=== PATIENT | female | born 1965 | race Caucasian/White ===

== ENCOUNTER → 2016-09-14 | Outpatient (CLI) | payer BC | LOC: KOH-I 09:40 | DX: M25.562 Pain in left knee (principal) | CPT/HCPCS: 73562 ==

== ENCOUNTER → 2020-05-06 | Outpatient (CLI) | payer BC ==
[~2020-05-06] MED LIST: TORADOL 10 MG T10 MG PO
== END ==
LOC: KOH-I 12:39
DX: M25.562 Pain in left knee (principal); M17.12 Unilateral primary osteoarthritis, left knee
CPT/HCPCS: 73562

== ENCOUNTER → 2020-10-21 | Outpatient (CLI) | payer BC | LOC: KOH-I 08:00 | DX: S83.242A Other tear of medial meniscus, current injury, left knee, initial encounter (principal); M25.562 Pain in left knee; M22.42 Chondromalacia patellae, left knee | CPT/HCPCS: 73721 ==

== ENCOUNTER → 2020-11-16 | Outpatient (CLI) | payer BC | LOC: KOH-I 16:08 | DX: R07.9 Chest pain, unspecified (principal) | CPT/HCPCS: 71046 ==

== ENCOUNTER → 2021-02-12 | Outpatient (CLI) | payer BC ==
[~2021-02-12] MED LIST changes: +CYANOCOBAL1000 MCG/1 INJ; +CYCLOBENZAPRINE10 MG PO; +ELIQUIS5 MG PO; +LEVOTHYROXINE25 MC1 PO; +LIPITOR10 MG PO; +LISINOPRIL20 MG PO; +LOVENOX40 MG/0.4 SQ; +MEGA BIOTIN10000 MCG PO; +OZEMPIC INJ; +[UNRECOGNIZED DRUG - OTHER] PO
[2021-02-12 10:48] LABS: HEMOGLOBIN 12.9 gm/dl (12.3-15.3); RED BLOOD COUNT 4.54 M/UL (4.00-5.10); WHITE BLOOD COUNT 8.1 K/UL (4.5-11.0)
[2021-02-12 11:30] LABS: BUN/CREATININE RATIO 26 (0-10)
== END ==
LOC: OPSV2 09:30
PROVIDERS: Orthopaedic Surgery
DX: Z01.812 Encounter for preprocedural laboratory examination (principal); S83.242A Other tear of medial meniscus, current injury, left knee, initial encounter
CPT/HCPCS: 36415; 80048; 85027

== ENCOUNTER → 2021-02-25 | Day surgery (SDC) | payer BC ==
[~2021-02-25] VITALS: Ht 160 cm; Wt 84.8 kg
== END | disposition home or self-care (01) ==
LOC: OR 02-18 10:30
DX: S83.232A Complex tear of medial meniscus, current injury, left knee, initial encounter (principal); M17.12 Unilateral primary osteoarthritis, left knee; M94.262 Chondromalacia, left knee; X58.XXXA Exposure to other specified factors, initial encounter; I10 Essential (primary) hypertension; E11.9 Type 2 diabetes mellitus without complications; E78.5 Hyperlipidemia, unspecified; E07.9 Disorder of thyroid, unspecified; Z90.49 Acquired absence of other specified parts of digestive tract; Z88.1 Allergy status to other antibiotic agents; Z79.01 Long term (current) use of anticoagulants; Z79.899 Other long term (current) drug therapy; Z80.1 Family history of malignant neoplasm of trachea, bronchus and lung
CPT/HCPCS: 82962; J0171; J0690; J1100; J1170; J1885; J2001; J2250; J2405; J2704; J3010; J7030; J7120